=== PATIENT | male | born 1995 | race Caucasian/White ===

== ENCOUNTER → 2020-09-22 08:28 | Outpatient (BNVA) | payer BC, OTHER, SELFPAY | PROVIDERS: Family Provider General Practice; Visit Provider Psychiatry & Neurology Psychiatry | DX: F33.2 Major depressive disorder, recurrent severe without psychotic features (principal); F41.1 Generalized anxiety disorder; F12.20 Cannabis dependence, uncomplicated; F17.200 Nicotine dependence, unspecified, uncomplicated; F10.20 Alcohol dependence, uncomplicated; F11.21 Opioid dependence, in remission; F25.1 Schizoaffective disorder, depressive type | CPT/HCPCS: 99204 ==

== ENCOUNTER → 2020-11-05 10:46 | Outpatient (BNVA) | payer BC, OTHER, SELFPAY | PROVIDERS: Family Provider General Practice; Visit Provider Psychiatry & Neurology Psychiatry | DX: F63.0 Pathological gambling (principal); F11.21 Opioid dependence, in remission; F10.20 Alcohol dependence, uncomplicated; F17.200 Nicotine dependence, unspecified, uncomplicated; F12.20 Cannabis dependence, uncomplicated; F41.1 Generalized anxiety disorder; F33.2 Major depressive disorder, recurrent severe without psychotic features | CPT/HCPCS: 99214 ==

== ENCOUNTER 2022-01-28 18:54 | Emergency (ER) | payer OTHER, SELFPAY ==
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
[2022-01-28 19:00] VITALS: BP 172/108; PULSE 83; RESP 18; TEMP 36.9; O2SAT 100; BMI 35.3
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
== END 2022-01-28 19:48 | disposition home or self-care (01) ==
PROVIDERS: Emergency Provider Nurse Practitioner Family
DX: S93.601A Unspecified sprain of right foot, initial encounter (principal); W16.622A Jumping or diving into natural body of water striking bottom causing other injury, initial encounter; Y92.828 Other wilderness area as the place of occurrence of the external cause
CPT/HCPCS: 73630; 99283; E0114